=== PATIENT | female | born 1985 ===

== ENCOUNTER → 2017-03-13 | Outpatient (CLI) | payer OTHER ==
--- NOTE | 2017-03-13 16:11 | MAMMOGRAPHY REPORT ---
ULTRASOUND OF RIGHT BREAST: 03/13/2017 CLINICAL HISTORY: Small palpable lump in the right axilla that the patient has noted for a few months . COMPARISON: No prior exams were available for comparison. FINDINGS: Targeted ultrasound was performed in the area of palpable lump pointed out by the patient. On palpation it was difficult to feel the exact lump pointed out by the patient, but she was able t o grasp it between her fingers and I was able to ultrasound in the exact area she pointed out. There is a minimal, 3 mm area of hypoechoic tissue which could represent normal tissue in the area of conc [place] within the right axilla. There is no hyperemia. No punctum extending to the dermal surface. No suspicious lymphadenopathy or suspicious solid or cystic mass. It is unclear if this small amount o f hypoechoic tissue could represent a resolving simple cyst or possibly a resolving epidermal inclusi on cyst. IMPRESSION: ACR BI-RADS CATEGORY 2: BENIGN A tiny 3 mm area of hypoechoic tissue is noted near the area of concern in the right axilla. It is unclear if this could simply represent normal tissue or a resolving benign simple cyst or resolving e pidermal inclusion cyst. Overall, there is no suspicious abnormality on the suspicious lymphadenopat hy or sonographic evidence of malignancy in the right axilla. Continued clinical monitoring is recom mended. These results and recommendations were discussed with the patient at the time of the exam. Julia Henry M.D. ay/:03/13/2017 14:42:46 Powder Worker: Dr. Julia Henry, [facility] letter sent: Normal 1/2 BI-RADS Code: ACR BI-RADS Category 2: Benign
== END | disposition home or self-care (01) ==
LOC: C.MAMM 13:51
PROVIDERS: ATTEND Nurse Practitioner Women's Health
DX: R22.2 Localized swelling, mass and lump, trunk (principal)